=== PATIENT | male | born 1970 | race Caucasian/White ===

== ENCOUNTER 2018-11-12 22:30 | Emergency (ER) | payer SELFPAY ==
[~2018-11-12] VITALS: Ht 180.3 cm; Wt 74.8 kg
[2018-11-12 22:30] VITALS: BP 124/67
--- NOTE | 2018-11-12 22:30 | NUR ---
PT TO CHAIR E, [facility] AT CHAIR SIDE
--- NOTE | 2018-11-12 22:30 | NUR ---
PATIENT BIB [facility] WITH C/O COUGH. PT STATED THAT HE HAS COUGH AND CONGESTION. PT IS A/O X 4 PATIENT STATES PAIN OF 0/10 AT THIS TIME; VSS; PATIENT POSITIONED FOR COMFORT; HOB ELEVATED; BEDRAILS UP X2; BED DOWN. CHITRA MONTOYA MADE AWARE OF PT STATUS.[facility] AT BEDSIDE Addendum: 11/13/18 at 0106 by [email or web address] [facility]. PT STATED THAT HE HAS COUGH AND CONGESTION. PT IS A/O X 4 PATIENT STATES PAIN OF 0/10 AT THIS TIME; VSS; PATIENT POSITIONED FOR COMFORT; HOB ELEVATED; BEDRAILS UP X2; BED DOWN. CHITRA MONTOYA MADE AWARE OF PT STATUS.[facility] AT BEDSIDE
[2018-11-13 00:20] VITALS: BP 124/67
--- NOTE | 2018-11-13 00:20 | NUR ---
Patient discharged with v/s stable. Written and verbal after care instructions given and explained. Patient verbalized understanding. Police with in custody. All questions addressed prior to discharge. Advised to follow up with PMD.
== END 2018-11-13 00:20 | disposition home or self-care (01) ==
LOC: MED 22:30
DX: R05 Cough (principal); F17.200 Nicotine dependence, unspecified, uncomplicated; I25.2 Old myocardial infarction; Z02.89 Encounter for other administrative examinations
CPT/HCPCS: 71045; 99283